=== PATIENT | female | born 1975 | race African-American/Black ===

== ENCOUNTER 2018-08-14 23:39 | Emergency (ER) | payer OTHER ==
[~2018-08-14] VITALS: Ht 160 cm; Wt 76.2 kg
[2018-08-14 23:46] VITALS: BP 152/94
[2018-08-14] MEDS ORDERED: IBUPROFEN 200200 M1 PO (23:48)
[2018-08-15] MEDS ORDERED: TRAMADOL 50 MG50 MG PO (00:33)
[2018-08-15] MEDS ORDERED: NAPROSYN500 MG PO (00:33)
== END 2018-08-15 00:53 | disposition home or self-care (01) ==
LOC: ER 23:39
DX: S93.492A Sprain of other ligament of left ankle, initial encounter (principal); Z90.710 Acquired absence of both cervix and uterus; W01.0XXA Fall on same level from slipping, tripping and stumbling without subsequent striking against object, initial encounter; Y92.89 Other specified places as the place of occurrence of the external cause; Y93.89 Activity, other specified; Y99.8 Other external cause status